=== PATIENT | male | born 1955 | race Caucasian/White ===

== ENCOUNTER 2023-05-06 01:05 | Emergency (ER) | payer OTHER, SELFPAY ==
[2023-05-06 01:05] VITALS: BMI 27.1
[2023-05-06 01:07] VITALS: BP 156/86
--- NOTE | 2023-05-06 01:18 | ED.GENMED ---
History of Present Illness
<Julien Caraballo MD - Last Filed: 05/06/23 13:53>
General
Chief Complaint: Chest Pain
Time Seen by Provider: 05/06/23 01:11
Travel History
Have you had any contact with someone who has COVID-19?: No
Do you have any symptoms of coronavirus? Fever > 100 degrees, chills, cough, shortness of breath, sore throat, loss of taste or smell, muscle aches, or headache?: No
<HESHAM Elizalde - Last Filed: 05/06/23 02:04>
General
Source: patient
Nursing documentation reviewed up to this point in time: agreed with
History of Present Illness
History of Present Illness:
67 y/o M with history of DVT in 2013 amd HLD presents to ED complaining of CP x 1 week. Patient reports the pain is a constant dull pressure in the center of his chest. He reports the pain worsens when he breathes in or moves around. The pain occurs
at rest and at activity. He states the pain is currently 5/10. Patient states he took Ibuprofen for his pain without relief. He also is on daily ASA after his DVT, last taken at 1999. He is also reporting one incident of left calf pain this week
while exercising. Patient does report recent travel to [facility] in March after which he developed COVID. Patient reports he is retired and is very active. Patient does daily weight training, power walking, and high intensity interval training.
He denies any change in activity, SOB or palpitations. No recent surgeries, pertinent family history or relevant smoking history. Patient follows up with staffing manager regularly after 2013 DVT. He last saw his staffing manager at [facility] in November
and started Rosuvastatin.
<HESHAM Elizalde - Last Filed: 05/06/23 02:04>
Social History
Tobacco: Former smoker
Employment: Retired
<HESHAM Elizalde - Last Filed: 05/06/23 02:04>
Review of Systems
Allergies reviewed?: Yes
All Other Systems: ROS reviewed and negative except as documented in HPI and ROS
Constitutional: Reports no symptoms
EENT: Reports no symptoms
Respiratory: Reports no symptoms
Cardiac: Reports chest pain
ABD/GI: Reports no symptoms
: Reports no symptoms
Musculoskeletal: Reports no symptoms
Skin: Reports no symptoms
Neurological: Reports no symptoms
Endocrine: Reports no symptoms
Hematologic/Lymphatic: Reports no symptoms
Psychiatric: Reports no symptoms
<HESHAM Elizalde - Last Filed: 05/06/23 02:04>
General Physical Exam
General Presentation: well appearing and no apparent distress
Scores
<Julien Caraballo MD - Last Filed: 05/06/23 13:53>
Heart Score for Chest Pain Patients
STEMI patient?: No
History: Slightly or Non-Suspicious
ECG: Normal
Age: >/= 65 years
Risk Factors: 1 or 2 Risk Factors
Troponin: </= Normal Limit
Heart Score for Chest Pain Patients: 3
Heart Score Risk: 2.5% MACE over next 6 weeks
Course
<Julien Caraballo MD - Last Filed: 05/06/23 13:53>
Orders/Labs/Results
Orders:
Orders
05/06/23 01:11
Electrocardiogram (*1) Urgent
Reason for Study: Chest Pain
EKG- Treatment ONCE
05/06/23 01:41
CMP [Comprehensive Metabolic Panel] Urgent
Complete Blood Count/With Diff Urgent
Troponin I Urgent
05/06/23 01:44
CR Chest - 2 Views Urgent
Comment:
Reason For Exam: chest pain
05/06/23 01:45
D-Dimer Urgent
05/06/23 02:33
US Legs, Left [US Periph Venous LOWER Ext LT] Urgent
Comment:
Reason For Exam: leg pain
Abnormal Lab Results
05/06/23
01:41
RBC 4.32 L 10^6/uL
(4.70-6.10)
Hct 37.7 L %
(39.0-52.0)
Monocytes % 11.2 H %
(1.7-9.3)
BUN 23 H mg/dl
(9-20)
Total Protein 6.1 L g/dl
(6.3-8.2)
05/06/23 01:41
05/06/23 01:41
Vital Signs
Initial and Last Documented VS:
Initial Vital Signs
Temp Pulse Resp BP Pulse Ox
97.6 F 56 22 156/86 98
05/06/23 01:07 05/06/23 01:07 05/06/23 01:07 05/06/23 01:07 05/06/23 01:07
Last Documented Vital Signs
Temp Pulse Resp BP Pulse Ox
97.6 F 58 16 164/91 98
05/06/23 01:07 05/06/23 03:30 05/06/23 03:30 05/06/23 03:30 05/06/23 03:30
<HESHAM Elizalde - Last Filed: 05/06/23 02:04>
Orders/Labs/Results
Orders:
Orders
05/06/23 01:11
Electrocardiogram (*1) Urgent
Reason for Study: Chest Pain
EKG- Treatment ONCE
05/06/23 01:41
CMP [Comprehensive Metabolic Panel] Urgent
Complete Blood Count/With Diff Urgent
Troponin I Urgent
05/06/23 01:44
CR Chest - 2 Views Urgent
Comment:
Reason For Exam: chest pain
05/06/23 01:45
D-Dimer Urgent
05/06/23 02:33
US Legs, Left [US Periph Venous LOWER Ext LT] Urgent
Comment:
Reason For Exam: leg pain
Abnormal Lab Results
05/06/23
01:41
RBC 4.32 L 10^6/uL
(4.70-6.10)
Hct 37.7 L %
(39.0-52.0)
Monocytes % 11.2 H %
(1.7-9.3)
BUN 23 H mg/dl
(9-20)
Total Protein 6.1 L g/dl
(6.3-8.2)
05/06/23 01:41
05/06/23 01:41
Vital Signs
Initial and Last Documented VS:
Initial Vital Signs
Temp Pulse Resp BP Pulse Ox
97.6 F 56 22 156/86 98
05/06/23 01:07 05/06/23 01:07 05/06/23 01:07 05/06/23 01:07 05/06/23 01:07
Last Documented Vital Signs
Temp Pulse Resp BP Pulse Ox
97.6 F 58 16 164/91 98
05/06/23 01:07 05/06/23 03:30 05/06/23 03:30 05/06/23 03:30 05/06/23 03:30
<Julien Caraballo MD - Last Filed: 05/06/23 13:53>
*EKG
Interpreted by ED Provider?: Yes
EKG Intrepretation Date: 05/06/23
Heart Rate: 51
Rate: bradycardiac
Rhythm: sinus
Clifford: normal axis
Interval: normal interval and first degree heart block
QRS Pattern: normal QRS
*Critical Care Note
Total Time (30-74mins, 75-104mins- exclusive of procedures): Not Applicable
ED Attending Note
<Julien Caraballo MD - Last Filed: 05/06/23 13:53>
ED Attending Note
Patient seen and examined by attending physician: Yes
ED Attending Note:
Patient presents to ED secondary to persistent chest pain over the past 1 week. Chest pain described as midsternal, nonradiating, pressure-like, worse with movement/exertion/breathing, but mild at rest. Denies trauma. Denies fever or chills.
Denies back pain. Denies nausea or vomiting. Denies diaphoresis. Of note, patient reports having contracted COVID-19 1 month ago, after returning from vacation at [facility]. Denies leg pain or swelling. Denies recent change in activities.
Denies family history of heart disease. Patient however, does have history of left lower leg DVT which progressed to pulmonary embolism in 2013, requiring Xarelto treatment for 1 year. After hematological workup, Xarelto was discontinued and has
been maintained on 81 mg aspirin daily. Patient is currently being followed by staffing manager at [facility], secondary to an acute drug reaction in 2019, which resulted in chest pain along with elevated blood pressure. In
addition, patient has had similar 'stress related angina' in the past. Patient states that current chest pain feels similar, but has been more persistent and severe in quality.
Physical Exam
General: no apparent distress, not acutely ill. afebrile
Head: nc/at. eomi
Neck: supple. no meningeal signs.
Heart: s1/s2 regular rate and rhythm, no murmur. equal radial pulses.
Lungs: no acute respiratory distress. clear bilaterally
Abdomen: normal bowel sounds. not tender.
Neuro: alert and oriented. no focal neurological deficits
Skin: no rash
Psychiatric: well kept. interactive and cooperative
Extremities: no edema. no calf tenderness.
Patient with an unremarkable workup in ED, including blood work, EKG, chest x-ray, as well as lower extremity ultrasound. Patient presenting symptoms less likely ACS, but more likely pleurisy versus pericarditis, with recent COVID infection.
Otherwise, patient nadira afebrile, hemodynamically stable, and nontoxic-appearing. Patient will be discharged home in stable condition, with recommendation to utilize NSAIDs twice daily for the next 5 to 7 days, as well as close follow-up with his
staffing manager. Advised to return to ED with worsening symptoms. Patient expresses understanding at time of discharge.
-
Portions of this chart may have been created with voice recognition software.� Occasional wrong word or��sound alike� substitutions may have occurred due to the inherent limitations of voice recognition software.
Discharge Plan
Departure
Patient Disposition: Home (Routine Discharge)
Date of Disposition: 05/06/23
Time of Disposition: 03:26
Patient with high blood pressure during this ER visit?: Yes
Condition: Good
Discharge Problem:
Chest pain
Instructions: Chest Pain NON-[facility] Oncology Radiation Physician Follow Up
Referrals:
Vanessa Velasquez MD [Family Provider] -
Activity Restrictions/Additional Instructions:
As discussed, please follow-up with your primary care physician and/or staffing manager for further evaluation and treatment, along with use of NSAIDS, i.e. ibuprofen/motrin.
Interventions
Interventions:
*Risk Screen - Suicide Last Done: 05/06/23 02:26
*General Assessment Last Done: 05/06/23 02:26
*Neglect/Abuse Screening Last Done: 05/06/23 02:26
ED- Fall Risk Assessment Last Done: 05/06/23 02:28
*ED COVID-19 Vaccine History Last Done: 05/06/23 02:26
*Nursing Disposition Last Done: 05/06/23 03:30
ED- Cardiac Assessment Last Done: 05/06/23 02:28
Discharge Date and Time
Discharge Date/Time: 05/06/23 03:30
[2023-05-06 01:40] VITALS: BP 137/89
[2023-05-06 01:47] LABS: % Basophils 0.8 % (0-2); % Eosinophils 3.9 % (0-6); % Immature Granulocytes 0.2 % (0-0.5); % Monocytes 11.2 % (1.7-9.3); % Neutrophils 47.9 % (42.2-75.2); Absolute Eosinophils 0.2 10^3/uL (0-0.7); Absolute Lymphocytes 1.8 10^3/uL (1.2-3.4); Absolute Monocytes 0.6 10^3/uL (0.1-0.6); Absolute Neutrophils 2.4 10^3/uL (1.4-6.5); Hematocrit 37.7 % (39.0-52.0); Hemoglobin 13.2 g/dL (13.0-18.0); Mean Corpuscular Hgb 30.6 pg (27.0-31.0); Mean Corpuscular Volume 87.3 fL (80.0-94.0); Mean Platelet Volume 9.2 fL (7.4-10.4); Nucleated Red Blood Cells % 0 % (-); Platelet Count 173 10^3/uL (130-400); Red Blood Cell Count 4.32 10^6/uL (4.70-6.10); White Blood Cell Count 4.9 10^3/uL (4.8-10.8)
[2023-05-06 02:01] LABS: D-Dimer 0.28 ug/mlFEU (0.00-0.50)
[2023-05-06 02:01] LABS: ALT (SGPT) 21 U/L (0-50); AST (SGOT) 29 U/L (17-59); Albumin 3.5 g/dl (3.5-5.0); Alkaline Phosphatase 52 U/L (38-126); Blood Urea Nitrogen 23 mg/dl (9-20); Calcium 9.2 mg/dl (8.4-10.2); Carbon Dioxide 28 mmol/L (22-30); Chloride 103 mmol/L (98-107); Estimated Creatinine Clearance 94 ml/min; Glucose 94 mg/dl (70-99); Potassium 3.9 mmol/L (3.5-5.1); Sodium 139 mmol/L (135-145); Total Bilirubin 0.6 mg/dl (0.2-1.3); Total Protein 6.1 g/dl (6.3-8.2); eGFR > 60.00
[2023-05-06 02:11] LABS: Troponin I < 0.012 ng/ml
[2023-05-06 02:24] VITALS: BP 153/92
[2023-05-06 03:28] VITALS: BP 164/91
[2023-05-06 03:30] VITALS: BP 164/91
== END 2023-05-06 03:30 | disposition home or self-care (01) ==
LOC: EMR 01:05
PROVIDERS: EMERGENCY PHYSICIAN Emergency Medicine; FAMILY PHYSICIAN Family Medicine
DX: R07.9 Chest pain, unspecified (principal); R03.0 Elevated blood-pressure reading, without diagnosis of hypertension; Z87.891 Personal history of nicotine dependence; Z86.718 Personal history of other venous thrombosis and embolism; Z79.01 Long term (current) use of anticoagulants; Z79.82 Long term (current) use of aspirin
CPT/HCPCS: 99285; 71046; 80053; 84484; 85025; 85379; 93005; 93971

== ENCOUNTER 2023-05-29 03:48 | Emergency (ER) | payer OTHER, SELFPAY ==
[2023-05-29 03:50] VITALS: BP 160/88
[2023-05-29 05:01] VITALS: BP 117/81
[2023-05-29 05:04] VITALS: BMI 27.8
[2023-05-29 05:09] LABS: % Basophils 0.8 % (0-2); % Eosinophils 5.3 % (0-6); % Lymphocytes 24.1 % (20.5-51.1); % Monocytes 10.7 % (1.7-9.3); % Neutrophils 59.1 % (42.2-75.2); Absolute Eosinophils 0.3 10^3/uL (0-0.7); Absolute Lymphocytes 1.3 10^3/uL (1.2-3.4); Absolute Monocytes 0.6 10^3/uL (0.1-0.6); Absolute Neutrophils 3.2 10^3/uL (1.4-6.5); Hematocrit 38.1 % (39.0-52.0); Hemoglobin 13.2 g/dL (13.0-18.0); Mean Corp Hgb Conc. 34.6 g/dL (33.0-37.0); Mean Corpuscular Hgb 30.8 pg (27.0-31.0); Mean Corpuscular Volume 88.8 fL (80.0-94.0); Mean Platelet Volume 9.2 fL (7.4-10.4); Nucleated Red Blood Cells % 0 % (-); Platelet Count 181 10^3/uL (130-400); Red Blood Cell Count 4.29 10^6/uL (4.70-6.10); White Blood Cell Count 5.3 10^3/uL (4.8-10.8)
--- NOTE | 2023-05-29 05:17 | ED.GENMED ---
History of Present Illness
<HESHAM Molina - Last Filed: 05/29/23 05:36>
General
Chief Complaint: Abdominal Pain
Source: patient
Exam Limitations: none
Time Seen by Provider: 05/29/23 04:46
Nursing documentation reviewed up to this point in time: agreed with
Travel History
Have you had any contact with someone who has COVID-19?: No
Do you have any symptoms of coronavirus? Fever > 100 degrees, chills, cough, shortness of breath, sore throat, loss of taste or smell, muscle aches, or headache?: No
History of Present Illness
History of Present Illness:
Patient is a 67 y/o male with PMH of DVT presenting for abdominal pain x 2 wks. Patient states that pain is located in the upper right abdomen that is worse with movement and inhalation. Patient states that ibuprofen has helped with pain. patient
states the pain is has been dull for th epast two weeks but has suddenly become sharp today. patient denies change in pain with food. Patient admits to a visit in the ER one month ago due to chest pain associated with a previous COVID infection.
patient followed up with pbx repairer and has been taking ibuprofen since. Patient denies soking, alcohol or change in diet. Patient denies N/V, SOB. D/C. blood in stool. back pain, fever, or bloating/flatulence. patient increased amlodipine disage
since last ED visit. BP on admission was 160/88 and is currently 117/81. patient admits to an abdominal workup 1+ year ago that showed mild 'roughness' to the liver. No abdominal workup has been completed since.
Past History
<HESHAM Molina - Last Filed: 05/29/23 05:36>
Social History
Tobacco: Former smoker
Employment: Retired
Review of Systems
<HESHAM Molina - Last Filed: 05/29/23 05:36>
Review of Systems
Allergies reviewed?: Yes
Constitutional: Reports no symptoms
EENT: Reports no symptoms
Respiratory: Reports trouble breathing
Cardiac: Reports chest pain
ABD/GI: Reports abdominal pain
: Reports no symptoms
Musculoskeletal: Reports no symptoms
Skin: Reports no symptoms
Neurological: Reports no symptoms
Endocrine: Reports no symptoms
Hematologic/Lymphatic: Reports no symptoms
Psychiatric: Reports no symptoms
Phy Exam
<HESHAM Molina - Last Filed: 05/29/23 05:36>
General Physical Exam
General Presentation: well appearing
General age: appears stated age
General Skin: warm
General Habitus: normal
General Mental: alert
General Hydration: appears well hydrated
ENT Exam
ENT Exam: EOMI, pharynx normal, neck supple and normocephalic
Eye Exam
Eye Exam: PERRL, cornea clear and conjunctiva normal
Cardiovascular Exam
Cardiovascular Exam: no edema and no murmur
Pulmonary Exam
Pulmonary Exam: lungs clear and other (tenderness to right intercostals )
Chest Wall: Right anterior: tenderness and Right lateral: tenderness
Gastrointestinal Exam
Gastrointestinal Exam: normal bowel sounds and tender
Palpation: right upper quadrant: No tenderness
Abdominal Scars: right lower quadrant and right upper quadrant
Neurological Exam
Neurological Exam: alert, oriented x3, no motor deficits and speech normal
Musculoskeletal Exam
Musculoskeletal Exam: full ROM and no edema
Skin Exam
Skin Exam: normal color, warm/dry, no rash and no petechia
Psychiatric Exam
Psychiatric Exam: normal mood/affect
Course
<HESHAM Molina - Last Filed: 05/29/23 05:36>
Orders/Labs/Results
Orders:
Orders
05/29/23 05:00
Complete Blood Count/With Diff Urgent
Comprehensive Metabolic Panel Urgent
Lipase Urgent
05/29/23 05:25
US Abdomen Complete/Upper Urgent
Comment:
Reason For Exam: upper abd pain
05/29/23 07:13
CT Chest Pe Study Urgent
Comment:
Reason For Exam: right sided cp woth dyspnea
05/29/23 07:21
Troponin I Urgent
05/29/23 07:55
HYDROmorphone [Dilaudid] 0.5 mg IV NOW STA
Abnormal Lab Results
05/29/23
05:00
RBC 4.29 L 10^6/uL
(4.70-6.10)
Hct 38.1 L %
(39.0-52.0)
Monocytes % 10.7 H %
(1.7-9.3)
BUN 25 H mg/dl
(9-20)
05/29/23 05:00
05/29/23 05:00
Vital Signs
Initial and Last Documented VS:
Initial Vital Signs
Temp Pulse Resp BP Pulse Ox
97.9 F 66 18 160/88 98
05/29/23 03:50 05/29/23 03:50 05/29/23 03:50 05/29/23 03:50 05/29/23 03:50
Last Documented Vital Signs
Temp Pulse Resp BP Pulse Ox
97.9 F 55 18 117/81 97
05/29/23 03:50 05/29/23 05:01 05/29/23 03:50 05/29/23 05:01 05/29/23 05:01
<Bong Polanco, DO - Last Filed: 05/29/23 07:28>
Orders/Labs/Results
Orders:
Orders
05/29/23 05:00
Complete Blood Count/With Diff Urgent
Comprehensive Metabolic Panel Urgent
Lipase Urgent
05/29/23 05:25
US Abdomen Complete/Upper Urgent
Comment:
Reason For Exam: upper abd pain
05/29/23 07:13
CT Chest Pe Study Urgent
Comment:
Reason For Exam: right sided cp woth dyspnea
05/29/23 07:21
Troponin I Urgent
05/29/23 07:55
HYDROmorphone [Dilaudid] 0.5 mg IV NOW STA
Abnormal Lab Results
05/29/23
05:00
RBC 4.29 L 10^6/uL
(4.70-6.10)
Hct 38.1 L %
(39.0-52.0)
Monocytes % 10.7 H %
(1.7-9.3)
BUN 25 H mg/dl
(9-20)
05/29/23 05:00
05/29/23 05:00
Vital Signs
Initial and Last Documented VS:
Initial Vital Signs
Temp Pulse Resp BP Pulse Ox
97.9 F 66 18 160/88 98
05/29/23 03:50 05/29/23 03:50 05/29/23 03:50 05/29/23 03:50 05/29/23 03:50
Last Documented Vital Signs
Temp Pulse Resp BP Pulse Ox
97.9 F 55 18 117/81 97
05/29/23 03:50 05/29/23 05:01 05/29/23 03:50 05/29/23 05:01 05/29/23 05:01
<Og Baeza, DO - Last Filed: 05/29/23 09:13>
Orders/Labs/Results
Orders:
Orders
05/29/23 05:00
Complete Blood Count/With Diff Urgent
Comprehensive Metabolic Panel Urgent
Lipase Urgent
05/29/23 05:25
US Abdomen Complete/Upper Urgent
Comment:
Reason For Exam: upper abd pain
05/29/23 07:13
CT Chest Pe Study Urgent
Comment:
Reason For Exam: right sided cp woth dyspnea
05/29/23 07:21
Troponin I Urgent
05/29/23 07:55
HYDROmorphone [Dilaudid] 0.5 mg IV NOW STA
Abnormal Lab Results
05/29/23
05:00
RBC 4.29 L 10^6/uL
(4.70-6.10)
Hct 38.1 L %
(39.0-52.0)
Monocytes % 10.7 H %
(1.7-9.3)
BUN 25 H mg/dl
(9-20)
05/29/23 05:00
05/29/23 05:00
Vital Signs
Initial and Last Documented VS:
Initial Vital Signs
Temp Pulse Resp BP Pulse Ox
97.9 F 66 18 160/88 98
05/29/23 03:50 05/29/23 03:50 05/29/23 03:50 05/29/23 03:50 05/29/23 03:50
Last Documented Vital Signs
Temp Pulse Resp BP Pulse Ox
97.9 F 55 18 117/81 97
05/29/23 03:50 05/29/23 05:01 05/29/23 03:50 05/29/23 05:01 05/29/23 05:01
<HESHAM Molina - Last Filed: 05/29/23 05:36>
MDM/Problems Addressed
Differential Diagnosis Includes:
chostochondritis
cirrhosis
cholelithiasis
MDM/Problems Addressed:
patient is a 67 y/o male presenting with abdominal pain x 2 weeks
<HESHAM Molina - Last Filed: 05/29/23 05:36>
*Critical Care Note
Total Time (30-74mins, 75-104mins- exclusive of procedures): Not Applicable
<Og Baeza DO - Last Filed: 05/29/23 09:13>
Update Note
Update Note:
9:05 AM a.m. ER attending signout pending CAT scan of the chest, patient is ultrasound unremarkable CAT scan unremarkable he is feeling better after pain meds, describes a spasm in his right chest has been on some Motrin, will try muscle relaxant
ED Attending Note
<HESHAM Molina - Last Filed: 05/29/23 05:36>
-
Portions of this chart may have been created with voice recognition software.� Occasional wrong word or��sound alike� substitutions may have occurred due to the inherent limitations of voice recognition software.
<Bong Polanco DO - Last Filed: 05/29/23 07:28>
ED Attending Note
Patient seen and examined by attending physician: Yes
I performed the substantive portion of visit, reviewed & personally made and approve the management plan that is documented in note by myself or BRANT.: Yes
ED Attending Note:
Pleasant 67-year-old male presents with abdominal pain in the right upper quadrant for the last 2 weeks. He states that it has been intermittent. It is worse with movement. He does report that ibuprofen has helped with his pain. Tonight, after
eating peanuts, he states that the pain got worse. Patient has been following with cardiology and so far he states he has gotten a clean [employer]. Denies fever, chills, nausea or vomiting. He does states that approximately 1 year ago he had
similar symptoms and they were unable to determine the etiology of the problem. Patient was seen in conjunction with the PA student. I have reviewed and agree with the history and treatment plan presented. On my independent physical exam, patient
is awake, alert, and oriented x3, minimal acute distress. Heart regular rate rhythm. Lungs clear to auscultation bilaterally. Abdomen soft with tenderness to palpation in the right upper quadrant. Negative Bell sign. Negative McBurney's point
tenderness. Good bowel sounds x 4 quadrants. Plan is for ultrasound.
Vital signs are stable. Patient not hypoxic
Nursing note reviewed. I agree with nursing documentation up to this point in time.
Home Meds and allergies reviewed.
NUMBER AND COMPLEXITY OF PROBLEMS ADDRESSED AT THE ENCOUNTER
� Chronic conditions affecting care: DVT, hypertension, chest pain ACS, PE, abdominal pain, musculoskeletal signed Buck
� Acute Exacerbation and/or Progression of Chronic Illness:
� Differential Diagnosis includes:
AMOUNT AND/OR COMPLEXITY OF DATA TO BE REVIEWED AND ANALYZED
I performed an independent evaluation of the following and my interpretation is:
EKG:
CT:
X-rays:
Ultrasound:
Laboratory Studies: T. bili is 1.6
Other:
Review of other/old records: EKG 05/06/2023 sinus bradycardia rate of 51. First-degree AV block.
Clinical information was obtained by an independent historian:
Prescriptions/Medications Considered but not given:
Further testing considered but not performed:
RISK OF COMPLICATIONS AND/OR MORBIDITY OR MORTALITY OF PATIENT MANAGEMENT
Social determinants of health affecting care: Good Social Support. Patient does live alone. Not applicable
Discussion with other providers:
Escalation of care including admission/observation vs risk of discharge considered:
CRITICAL CARE NOTE:
Total Time (exclusive of procedures):
Update:
05/29/2023 0713 AM: Back in to see the patient. Described ultrasound findings to him. He states that since he got back from ultrasound he has been having chest pain and shortness of breath which is similar to the symptoms that he originally
presented with. At this time we will get a CT PE study. Patient to be signed out to dayshift
Discharge Plan
Departure
Patient Disposition: Home (Routine Discharge)
Date of Disposition: 05/29/23
Time of Disposition: 09:11
Patient with high blood pressure during this ER visit?: No
Condition: Good
Discharge Problem:
Chest wall pain
Referrals:
Vanessa Velasquez MD [Family Provider] - Next open appointment
Interventions
Interventions:
*Risk Screen - Suicide Last Done: 05/29/23 03:50
*Neglect/Abuse Screening Last Done: 05/29/23 03:50
AN-Ohqxvr-Tpcmwdtkll Assessment Last Done: 05/29/23 05:07
[2023-05-29 05:49] LABS: ALT (SGPT) 27 U/L (0-50); AST (SGOT) 32 U/L (17-59); Albumin 3.7 g/dl (3.5-5.0); Alkaline Phosphatase 62 U/L (38-126); Blood Urea Nitrogen 25 mg/dl (9-20); Calcium 8.8 mg/dl (8.4-10.2); Carbon Dioxide 26 mmol/L (22-30); Chloride 106 mmol/L (98-107); Estimated Creatinine Clearance 94 ml/min; Glucose 92 mg/dl (70-99); Lipase 87 U/L (23-300); Potassium 3.8 mmol/L (3.5-5.1); Sodium 136 mmol/L (135-145); Total Bilirubin 0.4 mg/dl (0.2-1.3); Total Protein 6.5 g/dl (6.3-8.2); eGFR > 60.00
[2023-05-29 07:59] LABS: Troponin I < 0.012 ng/ml
[2023-05-29] MEDS: DILAUDID 0.5 MG IV (08:03)
[2023-05-29 09:55] VITALS: BP 137/84
[2023-05-29 10:06] VITALS: BP 137/84
== END 2023-05-29 10:09 | disposition home or self-care (01) ==
LOC: EMR 03:48
PROVIDERS: Student in an Organized Health Care Education/Training Program; EMERGENCY PHYSICIAN Emergency Medicine; FAMILY PHYSICIAN Family Medicine
DX: R07.89 Other chest pain (principal); Z87.891 Personal history of nicotine dependence
CPT/HCPCS: 99284; 71275; 76700; 80053; 83690; 84484; 85025; Q9967